=== PATIENT | female | born 1990 | race Caucasian/White ===

== ENCOUNTER 2025-06-24 13:27 | Outpatient (REF) | payer OTHER, SELFPAY ==
[2025-06-24 18:01] LABS: Hematocrit 38.3 % (37.0-47.0); Hemoglobin 12.6 g/dl (12.0-16.0); Mean Corpuscular HGB Conc 32.9 g/dl (31.0-35.0); Mean Corpuscular Hemoglobin 30.5 pg (27.0-33.0); Mean Corpuscular Volume 92.7 fL (80.0-98.0); NRBC Abs Auto 0.000 X10*3/uL (0.0-0.012); NRBC Pct Auto 0.0 /100WBC (0.0-0.2); Platelet Count 209 X10*3/uL (160-400); Red Blood Count 4.13 X10*6/uL (4.20-5.50); White Blood Count 6.3 X10*3/uL (4.8-10.8)
[2025-06-24 18:38] LABS: Alanine Aminotransferase 28 U/L (0-31); Albumin Level 4.3 g/dL (3.5-5.0); Alkaline Phosphatase 48 U/L (39-117); Anion Gap 11 (12-20); Aspartate Amino Transferase 34 U/L (5-31); Blood Urea Nitrogen 12 mg/dL (9-16); Calcium 9.2 mg/dL (8.4-10.2); Carbon Dioxide 25 mmol/L (22-29); Chloride 106 mmol/L (96-108); Cholesterol 174 mg/dL (<200); Estimated Glomerular Filt Rate > 60; HDL Cholesterol 46 mg/dL (>40); Iron 63 mcg/dL (30-160); Percent Iron Saturation 25 % (15-50); Potassium 3.9 mmol/L (3.3-5.1); Sodium 138 mmol/L (135-145); Total Iron Binding Capacity 252 mcg/dL (228-428); Total Protein 7.8 g/dL (6.5-8.0); Triglycerides 91 mg/dL (<150); Unsaturated Iron Binding 189 ug/dL
[2025-06-24 18:47] LABS: Ferritin 51 ng/mL (10-122); Folate 12.4 ng/mL (> or = 4.0); Vitamin B12 496 pg/mL (200-900)
== END 2025-06-24 13:28 | disposition home or self-care (01) ==
LOC: HO.WFDLDS 13:27
PROVIDERS: Visit Provider Nurse Practitioner Family
DX: Z00.00 Encounter for general adult medical examination without abnormal findings (principal); Z23 Encounter for immunization; E66.9 Obesity, unspecified; N94.6 Dysmenorrhea, unspecified; F33.0 Major depressive disorder, recurrent, mild; F41.1 Generalized anxiety disorder; F32.81 Premenstrual dysphoric disorder; M76.61 Achilles tendinitis, right leg; M76.62 Achilles tendinitis, left leg; B00.9 Herpesviral infection, unspecified; Z68.30 Body mass index [BMI] 30.0-30.9, adult; Z79.899 Other long term (current) drug therapy
CPT/HCPCS: 36415; 80053; 80061; 82306; 82570; 82607; 82728; 82746; 83036; 83540; 84443; 85027; 90471; 90656; 96127; 99385

== ENCOUNTER 2025-06-24 13:27 | Outpatient (AMB) | payer OTHER, SELFPAY ==
--- NOTE | 2025-06-24 13:30 | MHC.PC.OV ---
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 Is last menstrual period known: Yes Last menstrual period: 06/10/25 Post menopausal: No Patient : No Allergies No Known Allergies Allergy (Verified 06/24/25 13:51) Medication List - Last Reviewed 06/24/25 by SORAYA Mills escitalopram oxalate 5 mg PO DAILY tranexamic acid mg PO trazodone 50 mg PO QID PRN valacyclovir 500 mg PO BID PRN 3 days Tobacco use date assessed: 06/24/25 Dental Screening Dental Screen Date: 06/24/25 Did you have a dental visit in the last 12 months?: No Did you have a dental problem in the last 6 months where you did not have access to dental care?: No Was dental information given to patient?: No HPI HPI Comments History of Present Illness Details 34 y/o F with VAHE, MDD, obesity, HSV, PMDD, Fhx thyroid in Mom, 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 2 dogs and 3 cats. Health Maintenance Tdap 2022 Flu 06/24/25 Pap referred Specialist: counselor Joyce referred today PATIENT SERVICE COORDINATOR referred today to [facility] Here today to [facility] and for a CPE Relocated from [place], records reviewed. MDD/VAHE controlled on current meds Needs refills Does not have counselor at this time Interested to referral Dysmenorrhea causing anemia this worsens mood Told of PMDD While meds have helped but she cont to have Sx. Tried control in the past and this did not help/does not like Wt gain since starting lexapro Advised to do a thyroid diet in the past Fhx thyroid w/ Mom Achilles tendonitis bilat s/p PT Affects ability to exercise Accupuncture helped but no insurance coverage for this Obesity: - Current BMI 30.1. - Reports weight gain, remains active. Herpes Simplex Virus: - Treated with Valacyclovir as needed. Menorrhagia: - Heavy menses with clotting. - Periods impact iron/mood levels. 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 - Housing: Lives with partner. - Family Planning: No plans for conception. - Substance Use: Not discussed. - Activity: Highly active, exercises regularly. - Pets: Two dogs, three cats. Health Maintenance - Updated flu vaccination given during visit. - Tetanus vaccine received approximately two years ago. - Referral to women's health provider for routine Pap smears and management of menstrual cycle. - Recommended referral to grocery clerk for dietary advice. - Recommended referral to foot and ankle specialist for Achilles tendinitis management. Review of Systems - General: Reports weight gain, denies fatigue. - Skin: Denies rashes, reports cold sores (herpes simplex). - Cardiovascular: Denies chest pain. - Musculoskeletal: Reports bilateral Achilles tendinitis. - Reproductive: Reports heavy menstrual bleeding, severe premenstrual symptoms. - Psychological: Reports history of depression and anxiety, improved with current medication. Physical Exam General: Well developed, well nourished, in no acute distress. Appears stated age. Head: Normocephalic, atraumatic. Eyes: Pupils are equal, round and reactive to light and accommodation. Conjunctivae are clear. Scleras nonicteric bilat. Vision grossly normal. Ears: TMs clear AU, EACS WNL Nose: Patent, without discharge. Neck: No carotid bruit bilat. Supple, no adenopathy or thyromegaly. Breast: Edu on SBE Lungs: Clear to auscultation bilaterally. No rales, rhonchi or wheeze noted. Good air flow in all bob. Heart: Regular rate and rhythm. No murmurs, click, rubs or gallops are noted. Abdomen: Bowel sounds present in all quadrants. The abdomen is soft, nontender, with no masses or organomegaly noted. No hernias are noted. : Deferred. Reviewed recommendations for routine PATIENT SERVICE COORDINATOR. Pulses: Peripheral pulses are equal and palpable bilaterally. Extremities: No clubbing, cyanosis nor edema is noted. Neurologic: Gait and station normal. Cranial Nerves 2-12 intact. Motor strength grossly symmetrical and intact. No sensory loss. Balance normal. Skin: No rashes, ulcers, or lesions noted. Turgor is good. Skin color is good. Hair and nails are without abnormalities. Psych: Normal eye contact, affect and mood appropriate, and normal interactions. Patient is alert and appropriate to context. Results Pending Discussion Notes We discussed the patient's management of depression and anxiety with Escitalopram and PRN Trazodone, emphasizing the importance of continued mental health support. I explained the referral to a local women's health provider to further evaluate and manage her menorrhagia and PMDD. A referral to a grocery clerk was suggested to address metabolic concerns exacerbated by medication and aging. We discussed the Achilles tendinitis, with a suggestion for a engineering test specialist. We discussed the importance of flu vaccinations, which the patient received, and she clarified her tetanus status. Patient consented to the outlined referrals and treatment approach. The patient will follow-up in routine annual visits or as needed based on acute changes. Patient was given time to ask questions. All questions were answered to their satisfaction. Assessment and Plan 1. Major Depressive Disorder - Continue escitalopram 5 mg daily, Trazodone PRN. - Psych referral for medication oversight. 2. Generalized Anxiety Disorder - Maintain current treatment. 3. Premenstrual Dysphoric Disorder (PMDD) - Continue management, RN BONE MARROW TRANSPLANT referral for symptom evaluation. 4. Obesity - Referral to grocery clerk initiated. 5. Herpes Simplex Virus - Continue Valacyclovir PRN. 6. Menorrhagia - RN BONE MARROW TRANSPLANT consultation recommended. 7. Achilles Tendinitis - Referral to specialist initiated. Patient Instructions - Continue taking Escitalopram daily and Trazodone as needed. - Attend referrals with women's health provider, grocery clerk, and engineering test specialist. - Keep track of menstrual cycles and report any alarming changes. - Proceed with lifestyle routine; maintain an active exercise regimen. - Use Valacyclovir when cold sores appear. - RTO 1 year CPE, sooner PRN Consent Patient was informed and verbally consented to the use of an ambient scribe for clinic note documentation during this visit. An additional 30 minutes was spent addressing the problem(s) noted at todays visit. This includes time spent before the visit reviewing the chart, time spent during the visit, and time spent after the visit on documentation reviewing laboratory results, diagnostic imaging, medications, performing a medically necessary evaluation, counseling on diagnoses, care coordination, ordering appropriate tests, ordering appropriate medications, review of tests performed by other providers, reporting test results with the patient, communication with other healthcare providers. [facility] Medical History (Updated 06/24/25 @ 14:22 by Radha Frausto [facility]) Arthritis of right knee Depression Depression with anxiety History of gastroesophageal reflux (GERD) History of palpitations Surgical History History of right knee surgery History of surgery History of surgery Family History (Updated 06/24/25 @ 13:47 by SORAYA Mills) Mother Thyroid disorder Father No problems noted. 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 1. Little interest or pleasure in doing things: not at all 2. Feeling down, depressed, or hopeless: not at all 3. Trouble falling or staying asleep, or sleeping too much: several days 4. Feeling tired or having little energy: several days 5. Poor appetite or overeating: not at all 6. Feeling bad about yourself - or that you are a failure or have let yourself or your family down: not at all 7. Trouble concentrating on things, such as reading the newspaper or watching television: several days 8. Moving or speaking so slowly that other people could have noticed. Or the opposite - being so fidgety or restless that you have been moving around a lot more than usual: not at all 9. Thoughts that you would be better off or of hurting yourself in some way: not at all Total score: 3 Depression Screening Interpretation: Negative Depression Screening Done: Yes 21569 - PHQ-9 Billing: Yes Source: Developed by Drs. Matthew Alexandre, Paige Acosta, Raj Rainey and colleagues, with an educational rigo from [employer]. Thrive Questionnaire Date Thrive assessed: 06/24/25 I am a: Patient What is your living situation today?: I have a steady place to live Within the past 12 months, did the food you bought not last and you didn't have the money to get more?: Never true Within the past 12 months, did you worry whether your food would run out before you got money to buy more?: Never true Do you have trouble paying for medicines?: No Do you have trouble getting transportation to medical appointments?: No Do you have trouble paying your heating and electricity bill?: No Do you have trouble taking care of your child, family member or friend?: No Do you have trouble with day-to-day activities such as bathing, preparing meals, shopping, managing finances, etc.?: No Are you currently unemployed and looking for a job?: No Are you interested in more education?: No Please select the resources that you would like help with: None Currently or been in a relationship where the following occur: I choose not to answer THRIVE Score: 0 AUDIT C Alcohol Use Questionnaire (AUDIT-C) 1. How often do you have a drink containing alcohol?: 2-4 times a month 2. How many drinks containing alcohol do you have on a typical day when you are drinking?: 1 or 2 3. How often do you have six or more drinks on one occasion?: Never Total Score: 2 Score Reviewed/Action Taken: Yes VAHE-7 AMB Questionnaire VAHE-7 Date VAHE - 7 assessed: 12/18/21 Feeling nervous, anxious, or on edge: 1 = Several days Not being able to stop or control worryin = Not at all Worrying too much about different things: 1 = Several days Trouble relaxin = Not at all Being so restless that it is hard to sit still: 0 = Not at all Becoming easily annoyed or irritable: 1 = Several days Feeling afraid as if something awful might happen: 0 = Not at all Total VAHE-7 score (0-4 normal; 5-9 mild; 10-14 moderate; 15-21 severe): 3 Source: Developed by Gerson Fulleret B.W. Dave, Raj Rainey and colleagues, with an educational rigo from [employer]. VAHE-7 Assessment Billing VAHE-7 Assessment Tool: VAHE-7 Assessment 79587 Physical exam (Primary Care) Vital Signs: Last Vital Signs Temp 97.4 F 06/24/25 13:40 Pulse 63 06/24/25 13:40 Resp 16 06/24/25 13:40 BP 125/73 06/24/25 13:40 Pulse Ox 100 06/24/25 13:40 BMI result Body Mass Index 30.1 Tobacco/Smoking Status: Tobacco use Status Tobacco use date assessed 06/24/25 06/24/25 13:47 Patient Tobacco Use Status Never used Tobacco 06/24/25 13:40 e-Cigarette/Vaping Use Never Used 06/24/25 13:40 PHQ-9: PHQ-9 Score PHQ-9: Total score 3 06/24/25 13:54 Depression Screening Interpretation: Negative Thrive Assessment: Date of Thrive Assessment Date Thrive assessed 06/24/25 06/24/25 13:31 Currently or been in a relationship where the following occur: I choose not to answer Coding Level of Care Code New Pt Level 3 (04830) New Pt Prev Care 18-39yr(24165 Diagnoses Encounter to establish care Z76.89 Mild episode of recurrent major depressive disorder F33.0 Major depression episode severity: mild VAHE (generalized anxiety disorder) F41.1 Obesity (BMI 30-39.9) E66.9 Dysmenorrhea N94.6 PMDD (premenstrual dysphoric disorder) F32.81 Achilles tendonitis, bilateral M76.61; M76.62 Herpes B00.9 Influenza vaccination administered at current visit Z23 Up to date with tetanus vaccination Encounter for general adult medical examination without abnormal findings Z00.00 Laboratory exam ordered as part of routine general medical examination Z00.00 Additional Codes VAHE-7 Assessment Billing - VAHE-7 Assessment Tool: VAHE-7 Assessment 55195 ([id number]) PHQ-9 - 73808 - PHQ-9 Billing: Yes ([id number]) Assessment & Plan Assessment & Plan (1) Encounter to establish care: Code(s): Z76.89 - Persons encountering health services in other specified circumstances (2) MDD (major depressive disorder), recurrent episode: Code(s): F33.9 - Major depressive disorder, recurrent, unspecified Category: Medical Qualifiers: Major depression episode severity: mild Qualified Code(s): F33.0 - Major depressive disorder, recurrent, mild (3) VAHE (generalized anxiety disorder): Code(s): F41.1 - Generalized anxiety disorder Category: Medical (4) Obesity (BMI 30-39.9): Code(s): E66.9 - Obesity, unspecified Category: Medical (5) Dysmenorrhea: Code(s): N94.6 - Dysmenorrhea, unspecified Category: Medical (6) PMDD (premenstrual dysphoric disorder): Code(s): F32.81 - Premenstrual dysphoric disorder Category: Medical (7) Achilles tendonitis, bilateral: Code(s): M76.61 - Achilles tendinitis, right leg; M76.62 - Achilles tendinitis, left leg Category: Medical (8) Herpes: Code(s): B00.9 - Herpesviral infection, unspecified Category: Medical (9) Influenza vaccination administered at current visit: Onset Date: ~06/24/25 Code(s): Z23 - Encounter for immunization Category: Medical (10) Up to date with tetanus vaccination: Onset Date: ~2022 Category: Medical (11) Encounter for general adult medical examination without abnormal findings: Onset Date: ~06/24/25 Code(s): Z00.00 - Encounter for general adult medical examination without abnormal findings Category: Medical (12) Laboratory exam ordered as part of routine general medical examination: Code(s): Z00.00 - Encounter for general adult medical examination without abnormal findings Category: Medical Plan . Orders: Orders Comprehensive Met. Panel Today E66.9 - Obesity, unspecified, N94.6 - Dysmenorrhea, unspecified, Z00.00 - Encounter for general adult medical examination without abnormal findings TSH reflex Free T4 Today E66.9 - Obesity, unspecified, N94.6 - Dysmenorrhea, unspecified, Z00.00 - Encounter for general adult medical examination without abnormal findings Complete Blood Count no Diff Today E66.9 - Obesity, unspecified, N94.6 - Dysmenorrhea, unspecified, Z00.00 - Encounter for general adult medical examination without abnormal findings Hemoglobin A1c Today E66.9 - Obesity, unspecified, N94.6 - Dysmenorrhea, unspecified, Z00.00 - Encounter for general adult medical examination without abnormal findings Ferritin Today E66.9 - Obesity, unspecified, N94.6 - Dysmenorrhea, unspecified, Z00.00 - Encounter for general adult medical examination without abnormal findings IRON PROFILE Today E66.9 - Obesity, unspecified, N94.6 - Dysmenorrhea, unspecified, Z00.00 - Encounter for general adult medical examination without abnormal findings Lipid Panel Today E66.9 - Obesity, unspecified, N94.6 - Dysmenorrhea, unspecified, Z00.00 - Encounter for general adult medical examination without abnormal findings Microalbumin, Random (w Creat) Today E66.9 - Obesity, unspecified, N94.6 - Dysmenorrhea, unspecified, Z00.00 - Encounter for general adult medical examination without abnormal findings Vitamin D 25-OH Total Today E66.9 - Obesity, unspecified, N94.6 - Dysmenorrhea, unspecified, Z00.00 - Encounter for general adult medical examination without abnormal findings Vitamin B12 and Folate Today E66.9 - Obesity, unspecified, N94.6 - Dysmenorrhea, unspecified, Z00.00 - Encounter for general adult medical examination without abnormal findings Influenza [id number] Immunization Today Z23 - Encounter for immunization Referrals Nurse Navigator Referral F32.81 - Premenstrual dysphoric disorder, F33.9 - Major depressive disorder, recurrent, unspecified, F41.1 - Generalized anxiety disorder Podiatry Referral M76.61 - Achilles tendinitis, right leg, M76.62 - Achilles tendinitis, left leg RN BONE MARROW TRANSPLANT Referral F32.81 - Premenstrual dysphoric disorder, N94.6 - Dysmenorrhea, unspecified, Z12.4 - Encounter for screening for malignant neoplasm of cervix Nutrition/Dietitian Referral E66.9 - Obesity, unspecified Medications: New escitalopram oxalate 5 mg PO DAILY 90 tabs 2RF Fluarix [id number] (PF) (flu vac ts 2024-(6mos up)-PF) 0.5 mL IM ONCE 0.5 mL 0RF NS Z23 - Encounter for immunization Changed From trazodone 50 mg PO QID PRN 90 tabs 1RF for insomnia F41.8 - Other specified anxiety disorders To trazodone 50 mg PO DAILY PRN 90 tabs 1RF for insomnia F41.8 - Other specified anxiety disorders Refilled valacyclovir 500 mg PO BID PRN 6 tabs 3RF flare ups 3 days Patient Instructions: Walk-In Care (Urgent Care): We Make it Easy Walk-in for urgent medical issues such as: ? Seasonal Allergies ? Insect Bites ? Cough ? Diarrhea ? Acute Asthma Attacks ? Back, Knee or Joint Pain ? Ear Infection ? Fever without a Rash ? Headaches ? Nausea ? [place] Eye, Rash or Skin Irritation ? Sore Throat ? Sports Physicals ? Vomiting Most insurances are accepted. Patients do not need to be part of the [facility] to seek care at the walk-in clinic. Locations [address] [place] [address] Open Saturday through Saturday 8am-5pm *Hours may vary due to staffing availability. To confirm Walk-In Care hours please call. [facility] , [place] [address] ? [phone] [facility] Walk-In Care in [place] provides services to ages 18 and over. Open Saturday-Saturday: 7 a.m. to 5 p.m. and Saturday: 9 a.m. to 3 p.m.* *Hours may vary due to staffing availability. To confirm Walk-In Care hours in [place], please call [phone]. [address] [place] [address] ? [phone] [facility] Walk-In Care in [place] provides services to ages 12 and over. Open Saturday-Saturday: 8 a.m. to 5 p.m. Hours may vary due to staffing availability. To confirm Walk-In Care hours in [place], please call [phone]. LABORATORY SERVICES: [facility] Lab ? Primary Location [address] [place] [address] Saturday through Saturday 6:00 AM ? 5:00 PM Saturday 7:00 AM ? 11:00 AM* [phone] The [facility] Lab is centrally located near the front entrance of the Medical Center for easy outpatient access. Convenient parking is provided for outpatients. *Hours may vary due to staffing availability. To confirm Laboratory hours for any location, please call [phone]. Offsite Location For your convenience, we offer offsite laboratory draw stations at the following locations: [address] [facility] [place] ? [facility] [address], [address], [place] Saturday through Saturday 7:30 AM ? 1:00 PM* [phone] *Hours may vary due to staffing availability. To confirm Laboratory hours for any location, please call [phone]. [place] ? [facility] [address] [facility], [place] Saturday through Saturday 6:00 AM ? 3:30 PM* Saturday 6:30 AM ? 3 PM* [phone] *Hours may vary due to staffing availability. To confirm Laboratory hours for any location, please call [phone] [facility] Saturday through Saturday 7:30 AM ? 4:00 PM* [phone] *Hours may vary due to staffing availability. To confirm Laboratory hours for any location, please call [phone] [place] [address] Saturday through 9:00 AM ? 4:00 PM* *Hours may vary due to staffing availability. To confirm Laboratory hours for any location, please call [phone]. Appointments are not necessary. Walk-ins are welcome. Like all the departments throughout the [facility], our Lab undergoes frequent reviews to ensure the quality and accuracy of test results, and our staff takes special pride in its status as a nationally accredited facility. Patient Portal: [facility] ONE PATIENT. ONE RECORD. BETTER CARE. [facility] has a fully integrated, cutting-edge mobile electronic health information system that has revolutionized the way we care for our patients and manage our organization. This system improves communication and coordination enabling us to provide safe, higher-quality care, and an overall positive experience for staff and patients. Our first priority, as always, is to deliver the highest quality care possible. The system is running in the background supporting that priority. This portal is for all [facility] services and practices. If you are experiencing any technical difficulties with enrolling or logging into the Patient Portal please complete the [facility] Patient Portal Technical Support Form. [facility] now offers a new secure on-line interactive tool for patients to review their health information ? ?Patient Portal. This interactive web portal will enable patients and their families to take an active role in their care by providing easy, secure access to their health information via the internet. The Patient Portal provides patients with instant access to their health information, including laboratory results, medications, allergies, demographic information, visit history, and more. In addition to managing their own care, parents and health care proxies with authorized consent will appreciate the ability to access the records of those individuals for whom they provide care. Please note: if you wish to gain access (Proxy) to another patient?s portal, you will be required to come to the Medical Records Department in person at [facility]. Both the patient giving proxy access and the proxy will need to provide photo identification and complete the appropriate authorization. The Patient Portal also allows track their appointments online. The [facility] Patient Portal also saves patients time by allowing them to submit updates to their demographic and contact information prior to their visits. Portal email notifications will also alert patients to any new activity on their portal, such as test results and new appointments. In order to initially enroll in the [facility] Patient Portal, you will need to enter some required information including the following: your [facility] Medical Record number your personal home email address name date of Please note: In order to enroll in the [facility] Patient Portal, we need to have your email address on file in your electronic medical record. ?The email address needs to be specific for one person (yourself) in order for your Portal enrollment to be successful. ?You can update your email address in person with our Registration staff when you are registering for a hospital visit. ?Otherwise, you will need to come to the Health Information Management (Medical Records) Department at [facility]. ?We are open from Saturday ? Saturday from 7:30 a.m. ? 4:30 p.m. ?You will be required to present a photo id. Once you have successfully enrolled in the Patient Portal, you will receive a one-time user id and password for the Portal, sent to your email address. ?This will allow you to log into the Patient Portal within 99 hrs and reset your own logon id and password, and define personal security questions. ?Once your permanent login and password have been set, you can log into the [facility] Patient Portal at any time via the blue button above or from the Portal Logon button on any page of the [facility] website. [facility] and [facility] encourage all of our patients to enroll in Patient Portal as it presents a valuable opportunity for patients and their families to actively participate in their care and stay healthy Welcome to [facility]. ?We look forward to working with you. Health screenings for women You should visit your health care provider from time to time, even if you are healthy. The purpose of these visits is to: Screen for medical issues Assess your risk for future medical problems Encourage a healthy lifestyle Update vaccinations and other preventive care services Help you get to know your provider in case of an illness Information Even if you feel fine, you should still see your provider for regular checkups. These visits can help you avoid problems in the future. For example, the only way to find out if you have high blood pressure is to have it checked regularly. High blood sugar and high cholesterol levels also may not have any symptoms in the early stages. A simple blood test can check for these conditions. There are specific times when you should see your provider or receive specific health screenings. The [place] Preventive Services Task Force publishes a list of recommended screenings. Below are screening guidelines for women ages 18 to 39. BLOOD PRESSURE SCREENING Your blood pressure should be checked at least once every 3 to 5 years if: Your blood pressure is in the normal range (top number less than 120 mm Hg and bottom number less than 80 mm Hg) You don't have risk factors for high blood pressure Ask your provider if you need your blood pressure checked more often if: The top number is 120 to 129 mm Hg or the bottom number is 70 to 79 mm Hg You have diabetes, heart disease, kidney problems, are overweight, or have certain other health conditions You have a first-degree relative with high blood pressure You are Black You had high blood pressure during a If the top number is 130 mm Hg or greater or the bottom number is 80 mm Hg or greater, this is considered stage 1 hypertension. Schedule an appointment with your provider to learn how you can reduce your blood pressure. Watch for blood pressure screenings in your area. Ask your provider if you can stop in to have your blood pressure checked. BREAST CANCER SCREENING Experts do not agree about the benefits of breast self-exams in finding breast cancer or saving lives. Talk to your provider about what is best for you. A screening mammogram is not recommended for most women under age 40. Your provider may discuss and recommend mammograms, MRI scans, or ultrasounds if you have an increased risk for breast cancer, such as: A mother or sister who had breast cancer at a young age (most often starting screening earlier than the age the close relative was diagnosed) You carry a high-risk genetic marker CERVICAL CANCER SCREENING Cervical cancer screening should start at age 21 years unless your provider advises otherwise. After the first test: Women ages 21 through 29 should have a Pap test every 3 years. Exoprts do not agree on whether HPV testing is recommended for this age group. Women ages 30 through 65 should be screened with either a Pap test every 3 years or the HPV test every 5 years or both tests every 5 years (called cotesting ). Women who have been treated for precancer (cervical dysplasia) should continue to have Pap tests for 20 years after treatment or until age 65, whichever is longer. If you have had your uterus and cervix removed (total hysterectomy), and you have not been diagnosed with cervical cancer or precancer (high grade cervical neoplasia), you do not need cervical cancer screening. CHOLESTEROL SCREENING Cholesterol screening should begin at: Age 45 for women with no known risk factors for coronary heart disease Age 20 for women with known risk factors for coronary heart disease Repeat cholesterol screening should take place: Every 5 years for women with normal cholesterol levels More often if changes occur in lifestyle (including weight gain and diet) More often if you have diabetes, heart disease, kidney problems, or certain other conditions DIABETES SCREENING You should be screened for diabetes starting at age 35 and then repeated every 3 years if you have no risk factors for diabetes. Screening may need to start earlier and be repeated more often if you have other risk factors for diabetes, such as: You have a first degree relative with diabetes. You are overweight or have obesity. You have high blood pressure, prediabetes, or a history of heart disease. Screening for diabetes should be done if you are planning to become and you are overweight and have other risk factors such as high blood pressure. DENTAL EXAM Go to the dentist once or twice every year for an exam and cleaning. Your dentist will evaluate if you need more frequent visits. EYE EXAM Have an eye exam every 5 to 10 years before age 40. If you have vision problems, have an eye exam every 2 years or more often if recommended by your provider. You should have an eye exam that includes an examination of your retina (back of your eye) at least every year if you have diabetes. IMMUNIZATIONS Commonly needed vaccines include: Flu shot: get one every year. COVID-19 vaccine: ask your provider what is best for you. Tetanus-diphtheria and acellular pertussis (Tdap) vaccine: have one at or after age 19 as one of your tetanus-diphtheria vaccines if you did not receive it as an adolescent. Tetanus-diphtheria: have a booster (or Tdap) every 10 years. Varicella vaccine: receive 2 doses if you never had chickenpox or the varicella vaccine. Hepatitis B vaccine: receive 2, 3, or 4 doses, depending on your exact circumstances. Measles, mumps, and rubella (MMR) vaccine: receive 1 to 2 doses if you are not already immune to MMR. Your provider can tell you if you are immune. Ask your provider about the human papillomavirus (HPV) vaccine if: You have not received the HPV vaccine in the past You have not completed the full vaccine series (you should catch up on this shot) Ask your provider if you should receive other immunizations if you have certain health problems that increase your risk for some diseases such as pneumonia. INFECTIOUS DISEASE SCREENING Women who are sexually active should be screened for chlamydia and gonorrhea up until age 25. Women 25 years and older should be screened for chlamydia and gonorrhea if at high risk. Screening for hepatitis C: All adults ages 18 to 79 should get a one-time test for hepatitis C. people should be screened at every . Screening for human immunodeficiency virus (HIV): All people ages 15 to 65 should get a one-time test for HIV. Depending on your lifestyle and medical history, you may also need to be screened for infections such as syphilis and HIV, as well as other infections. PHYSICAL EXAM All adults should visit their provider from time to time, even if they are healthy. The purpose of these visits is to: Screen for disease Assess your risk of future medical problems Encourage a healthy lifestyle Update your vaccinations and other preventive care services Maintain a relationship with a provider in case of an illness Your height, weight, and BMI should be checked at every exam. During your exam, your provider may ask you about: Depression and anxiety Diet and exercise Alcohol and tobacco use Safety issues, such as using seat belts, smoke detectors, and intimate partner violence Your medicines and risk for interactions SKIN SELF-EXAM Your provider may check your skin for signs of skin cancer, especially if you're at high risk, such as if you: Have had skin cancer before Have close relatives with skin cancer Have a weakened immune system OTHER SCREENING Talk with your provider about colon cancer screening if you have a strong family history of colon cancer or polyps, or if you have had inflammatory bowel disease or polyps yourself. Routine bone density screening of women under 40 is not recommended.
[2025-06-24 13:40] VITALS: BP 125/73; PULSE 63; RESP 16; TEMP 36.3; O2SAT 100; BMI 30.1
== END 2025-06-24 14:27 | disposition home or self-care (01) ==
LOC: HO.HMCFM 13:28
PROVIDERS: PCP Nurse Practitioner Family; Visit Provider Nurse Practitioner Family
DX: Z00.00 Encounter for general adult medical examination without abnormal findings (principal); E66.9 Obesity, unspecified; Z68.30 Body mass index [BMI] 30.0-30.9, adult; N94.6 Dysmenorrhea, unspecified; F32.81 Premenstrual dysphoric disorder; M76.61 Achilles tendinitis, right leg; Z76.89 Persons encountering health services in other specified circumstances; F33.0 Major depressive disorder, recurrent, mild; F41.1 Generalized anxiety disorder; M76.62 Achilles tendinitis, left leg; B00.9 Herpesviral infection, unspecified; Z23 Encounter for immunization

== ENCOUNTER 2025-08-18 10:02 | Outpatient (AMB) | payer OTHER, SELFPAY ==
--- NOTE | 2025-08-18 10:16 | MHC.OFFVIS ---
Vital Signs 08/18/25 10:17 Height 5 ft 10 in Weight 190 lb BMI 27.3 Intake Visit Reasons: Achilles bilateral Intake Note: Romy is a 58 year old female who presents to the office today for a follow up for disorders of the skin & subcutaneous tissue. At last visit patient was prescribed clotrimazole cream to be applied to the feet once daily and new X-rays were orders. Pt states everything is going good and she was unable to obtain x rays. she is currently experiencing pain on the plantar aspect of her left foot. Allergies No Known Allergies Allergy (Verified 08/18/25 10:17) HPI Comments Details: The patient is a 35-year-old female with a past medical history as seen below presenting for evaluation of chronic bilateral Achilles tendinitis, which has been present for a couple of years. The issue began after a large, 80-mile hike, during which she felt the injury occur but was unable to stop. Initially, she developed a palpable bony prominence to the posterior aspect of the heel as well as a palpable nodule on her Achilles bilateral, which was previously described to her as scar tissue without a tendon tear. This bump has since resolved but occasionally returns with overexertion. The patient reports her right Achilles is worse than her left. Her pain is characterized by significant tightness, making it difficult to walk upon waking in the middle of the night. Recently, after an easy walk, she experienced pain rated at 5-6/10 for several hours. She has a history of heel pain at the base of the feet when the condition was severe, but this has not occurred recently. Previous treatments include physical therapy, which was not helpful, and acupuncture, which she found beneficial but had to discontinue after moving approximately seven months ago. She has previously used heel lifts as part of her previous treatment plan. She has not taken any pain medications for this condition. The patient is very active and She engages in frequent stretching, uses a foam roller, and has practiced yoga. Her past medical history is significant for multiple surgeries on her right knee. She denies any other pedal concerns. [facility] Medical History (Updated 08/27/25 @ 14:04 by Ilda Goss DPM) Insertional tendinopathy of both Achilles tendons Bilateral ankle pain Depression History of gastroesophageal reflux (GERD) Arthritis of right knee History of palpitations Depression with anxiety Surgical History History of surgery History of surgery History of right knee surgery Family History (Updated 06/24/25 @ 13:47 by SORAYA Mills) Mother Thyroid disorder Father No problems noted. 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 All systems reviewed & are unremarkable except as noted in HPI and below Physical Exam Vital Signs: BMI result Body Mass Index 27.3 Extrem Other: Bilateral lower extremity focused physical exam: Derm: No open lesions abrasions or wounds noted. No hyperkeratotic or macerated areas noted. Skin supple and turgor within normal limits. No ecchymosis, erythema, or discoloration noted. No clinical signs of infection noted. Vascular: DP/PT pulses palpable. CFT less than 3 seconds. Temperature gradient warm to warm. Pedal hair present. No varicosities noted. No edema noted. Neuro: Protective sensation is grossly intact to light touch. MSK: Pain on palpation to the distal aspect of the Achilles and insertional point of the Achilles/posterior aspect of the heels. No palpable [place]bertson noted. Negative Pike's test noted. MMT 5/5. Range of motion of the ankle within normal limits. Range of motion of the forefoot and hindfoot within normal limits. No crepitus or fluctuance noted. Mildly antalgic gait unassisted noted. Office Procedures [facility] Podiatry Dressing Details of Procedure: Provided patient with heel lifts in shoes for offloading of the Achilles tendons. 40047 - Strapping of foot/ankle Procedure code (CPT) selection complete Results Reviewed Results Reviewed: Ordered bilateral ankle three-view weight-bearing x-rays to be performed prior to next visit. Assessment & Plan Assessment & Plan (1) Achilles tendonitis, bilateral: Code(s): M76.61 - Achilles tendinitis, right leg; M76.62 - Achilles tendinitis, left leg Category: Medical (2) Bilateral ankle pain: Code(s): M25.571 - Pain in right ankle and joints of right foot; M25.572 - Pain in left ankle and joints of left foot Category: Medical (3) Insertional tendinopathy of both Achilles tendons: Code(s): M76.61 - Achilles tendinitis, right leg; M76.62 - Achilles tendinitis, left leg Category: Medical Plan Patient was informed and verbally consented to the use of an ambient scribe for clinic note documentation during this visit. I discussed with the patient that her chronic symptoms are consistent with Achilles insertional tendinitis, likely exacerbated by tight calf musculature and a bone spur. I explained that we would start with conservative management, beginning with a course of a Medrol Dosepak to reduce inflammation and pain. I educated her on the importance of using the provided heel lifts to offload the Achilles tendon and continuing her calf stretching exercises. I have ordered x-rays to evaluate osseous conditions which can irritate the tendon and worsen symptoms. We discussed the subsequent steps if this initial plan is unsuccessful, which would include potentially prescribing meloxicam, obtaining an MRI for a more detailed view of the tendon, or referral for physical therapy. I also mentioned more invasive options if conservative therapy fails, such as surgical intervention. The patient understood the plan and agreed to follow up in three weeks. - Ordered bilateral ankle x-rays to be performed prior to next visit. - Prescribed a Medrol Dosepak. - The patient was provided with heel lifts to be placed in her shoes to reduce strain on the Achilles tendons. - The patient was instructed to continue with home stretching exercises, focusing on the calf muscles. Provided patient with instructional form. - Activity modification was advised, specifically to avoid strenuous calf exercises and high-incline treadmill walking, while allowing for light to medium intensity workouts. - If symptoms do not improve, further management options may include an MRI, referral to physical therapy, or immobilization in a walking boot. RTC in 3 weeks. Orders: Orders XR Ankle Jeffery min 3V 08/18/ M25.571 - Pain in right ankle and joints of right foot, M25.572 - Pain in left ankle and joints of left foot, M76.61 - Achilles tendinitis, right leg, M76.62 - Achilles tendinitis, left leg Medications: New methylprednisolone (Medrol (Shahab)) PO PER PKG DIR 21 ea 0RF M76.61 - Achilles tendinitis, right leg, M76.62 - Achilles tendinitis, left leg Coding Level of Care Code New Pt Level 4 (15917) Diagnoses Achilles tendonitis, bilateral M76.61; M76.62 Bilateral ankle pain M25.571; M25.572 Insertional tendinopathy of both Achilles tendons M76.61; M76.62 CPT Codes Podiatry Dressing - CPT: 70197 - Strapping of foot/ankle ([id number]) Time Spent (min) 48
[2025-08-18 10:17] VITALS: BMI 27.3
== END 2025-08-18 10:41 | disposition home or self-care (01) ==
LOC: HO.HPODS 10:03
PROVIDERS: PCP Nurse Practitioner Family; Visit Provider Student in an Organized Health Care Education/Training Program
DX: M76.61 Achilles tendinitis, right leg (principal); M76.62 Achilles tendinitis, left leg; M25.571 Pain in right ankle and joints of right foot; M25.572 Pain in left ankle and joints of left foot
CPT/HCPCS: 29540; 99204

== ENCOUNTER → 2025-08-18 10:02 | Outpatient (BNVA) | payer OTHER, SELFPAY | PROVIDERS: PCP Nurse Practitioner Family; Visit Provider Student in an Organized Health Care Education/Training Program | DX: M76.61 Achilles tendinitis, right leg (principal); M76.62 Achilles tendinitis, left leg | CPT/HCPCS: 29540; 99202 ==